=== PATIENT | female | born 1975 | race American Indian/Alaskan Native ===

== ENCOUNTER 2016-12-22 15:27 | Emergency (ER) | payer MEDICAID, OTHER ==
[2016-12-22 16:21] VITALS: BP 120/71
== END 2016-12-22 23:17 | disposition left against medical advice (07) ==
LOC: ED 15:27
DX: M79.671 Pain in right foot (principal); Z53.21 Procedure and treatment not carried out due to patient leaving prior to being seen by health care provider

== ENCOUNTER 2016-12-23 12:38 | Emergency (ER) | payer MEDICAID ==
[2016-12-23] MEDS ORDERED: MOTRIN PO ONE (20:06)
--- NOTE | 2016-12-23 20:16 | Emergency Department Report ---
ED Lower Extremity HPI - General Chief Complaint: Extremity Injury, Lower Stated Complaint: RT ANKLE SWELLING Time Seen by Provider: 12/23/16 19:45 Source: patient Mode of arrival: Ambulatory Limitations: No Limitations - History of Present Illness Initial Comments: 41-year-old female past medical history bipolar disorder presents with complaint of several days of right midfoot pain. Patient denies any direct trauma. States she stands up for long periods of time at work. States she walks several miles to work every day and has done so for several years. Patient denies any significant swelling of foot says she has some mild discomfort on direct palpation of midfoot. Patient denies any fevers chills or changes in skin otherwise. Patient states she has experienced this discomfort intermittently in the past after long periods of standing. Complaint: foot injury Onset/Timin -: days(s) Injury: Foot: Right Place: home, work Severity: mild Severity scale (0 -10): 5 Improves With: NSAID Worsens With: weight bearing, movement Associated Symptoms: ambulatory (patient is ambulatory without assistance) - Related Data Home Medications Medication Instructions Recorded Confirmed Last Taken carBAMazepine [Tegretol] 100 mg PO Q8H 04/19/13 04/19/13 Unknown Previous Rx's Medication Instructions Recorded Last Taken Type Ibuprofen [Motrin 800 MG tab] 800 mg PO Q8HR PRN #30 tablet 12/28/15 Unknown Rx Sulfamethoxazole/Trimethoprim 1 each PO BID #20 tablet 12/28/15 Unknown Rx [Bactrim DS TAB] Triamcinolone 0.1% [Kenalog 0.1% 1 applic TP TID #1 tube 12/28/15 Unknown Rx CREAM] metroNIDAZOLE 0.75% [Vandazole 1 applicator VG QHS #1 tube 12/28/15 Unknown Rx 0.75% VAGINAL] Naproxen [Naprosyn TAB] 500 mg PO BID PRN #20 tablet 12/23/16 Unknown Rx Allergies Allergy/AdvReac Type Severity Reaction Status Date / Time No Known Allergies Allergy Unverified 04/19/13 14:37 ED Review of Systems ROS: Stated complaint: RT ANKLE SWELLING Other details as noted in HPI Constitutional: denies: chills, fever Eyes: denies: eye pain, eye discharge, vision change ENT: denies: ear pain, throat pain Respiratory: denies: cough, shortness of breath, wheezing Cardiovascular: denies: chest pain, palpitations Endocrine: no symptoms reported Gastrointestinal: denies: abdominal pain, nausea, diarrhea Genitourinary: denies: urgency, dysuria, discharge Musculoskeletal: denies: back pain, joint swelling, arthralgia Skin: denies: rash, lesions Neurological: denies: headache, weakness, paresthesias Psychiatric: denies: anxiety, depression Hematological/Lymphatic: denies: easy bleeding, easy bruising ED Past Medical Hx - Past Medical History Previous Medical History?: Yes Hx Psychiatric Treatment: Yes (bipolar) - Surgical History Past Surgical History?: Yes Additional Surgical History: cyst removed from breasts- 1991 - Social History Smoking Status: Current Every Day Smoker Substance Use Type: Alcohol, Prescribed - Medications Home Medications: Home Medications Medication Instructions Recorded Confirmed Last Taken Type carBAMazepine [Tegretol] 100 mg PO Q8H 04/19/13 04/19/13 Unknown History Ibuprofen [Motrin 800 MG tab] 800 mg PO Q8HR PRN #30 tablet 12/28/15 Unknown Rx Sulfamethoxazole/Trimethoprim 1 each PO BID #20 tablet 12/28/15 Unknown Rx [Bactrim DS TAB] Triamcinolone 0.1% [Kenalog 0.1% 1 applic TP TID #1 tube 12/28/15 Unknown Rx CREAM] metroNIDAZOLE 0.75% [Vandazole 1 applicator VG QHS #1 tube 12/28/15 Unknown Rx 0.75% VAGINAL] Naproxen [Naprosyn TAB] 500 mg PO BID PRN #20 tablet 12/23/16 Unknown Rx ED Physical Exam - General Limitations: No Limitations General appearance: alert, in no apparent distress - Head Head exam: Present: atraumatic, normocephalic - Eye Eye exam: Present: normal appearance, PERRL, EOMI Pupils: Present: normal accommodation - ENT ENT exam: Present: mucous membranes moist - Neck Neck exam: Present: normal inspection - Respiratory Respiratory exam: Present: normal lung sounds bilaterally. Absent: respiratory distress - Cardiovascular Cardiovascular Exam: Present: regular rate, normal rhythm. Absent: systolic murmur, diastolic murmur, rubs, gallop - GI/Abdominal GI/Abdominal exam: Present: soft, normal bowel sounds - Extremities Exam Extremities exam: Present: normal inspection - Expanded Lower Extremity Exam Right Hip exam: Present: normal inspection Upper Leg exam: Present: normal inspection, full ROM Knee exam: Present: normal inspection, full ROM Lower Leg exam: Present: normal inspection, full ROM Ankle exam: Present: normal inspection, full ROM Foot/Toe exam: Present: normal inspection, full ROM, tenderness (there is reproducible tenderness on palpation of the midfoot region. There is no significant tenderness out of proportion. Patient is ambulatory without assistance. Full dorsalis pedis and posterior tibial pulses are intact palpation, distal sensation is intact) Neuro vascular tendon exam: Present: no vascular compromise Gait: Positive: observed and normal - Back Exam Back exam: Present: normal inspection - Neurological Exam Neurological exam: Present: alert, oriented X3 - Psychiatric Psychiatric exam: Present: normal affect, normal mood - Skin Skin exam: Present: warm, dry, intact, normal color. Absent: rash ED Course Vital Signs 12/23/16 12:56 Temperature 98.1 F Pulse Rate 65 Respiratory 20 Rate Blood Pressure 107/68 O2 Sat by Pulse 100 Oximetry ED Lower Extremity MDM - Medical Decision Making A/P: Right foot plantar fasciitis 1-based on clinical exam and history endorsed by the patient given prolonged standing periods at work and walking several miles on a daily basis patient more than likely has plantar fasciitis. Denies any direct trauma foot is neurovascularly intact distal pulses are strong to palpation and distal sensation is intact. Range of motion full and ankle intact there is no calf tenderness there is no significant swelling there is no peripheral edema. 2-naproxen when necessary, orthopedic shoe 3-follow-up with podiatry 4- patient ambulatory upon discharge Critical care attestation.: If time is entered above; I have spent that time in minutes in the direct care of this critically ill patient, excluding procedure time. ED Disposition Clinical Impression: Plantar fasciitis of right foot Disposition: DC- TO HOME OR SELFCARE Is pt being admited?: No Does the pt Need Aspirin: No Condition: Stable Instructions: Plantar Fasciitis (ED), RICE Therapy (ED) Prescriptions: Naproxen [Naprosyn TAB] 500 mg PO BID PRN #20 tablet PRN Reason: Pain , Severe (7-10) Referrals: ARUNA MORE DPM [Staff Physician] - 3-5 Days Forms: Work/School Release Form(ED) Time of Disposition: 20:17
[2016-12-23 20:21] VITALS: BP 116/75
== END 2016-12-23 20:39 | disposition home or self-care (01) ==
LOC: ED 12:38
DX: M72.2 Plantar fascial fibromatosis (principal); F31.9 Bipolar disorder, unspecified; F17.200 Nicotine dependence, unspecified, uncomplicated
CPT/HCPCS: 99283

== ENCOUNTER 2018-03-14 20:22 | Emergency (ER) | payer MEDICAID ==
[2018-03-14 20:28] VITALS: BP 126/74
--- NOTE | 2018-03-14 20:49 | Emergency Department Report ---
ED Female HPI - General Chief complaint: Urogenital-Female Stated complaint: PAIN IN BOTH BREAST Time Seen by Provider: 03/14/18 20:44 Source: patient Mode of arrival: Ambulatory Limitations: No Limitations - History of Present Illness -: Gradual Radiation: non-radiating Severity: mild Improves with: none Worsens with: none Are you Now?: No Associated Symptoms: denies other symptoms - Related Data Sexually active: Yes Home Medications Medication Instructions Recorded Confirmed Last Taken carBAMazepine [Tegretol] 100 mg PO Q8H 04/19/13 04/19/13 Unknown Previous Rx's Medication Instructions Recorded Last Taken Type Ibuprofen [Motrin 800 MG tab] 800 mg PO Q8HR PRN #30 tablet 12/28/15 Unknown Rx Sulfamethoxazole/Trimethoprim 1 each PO BID #20 tablet 12/28/15 Unknown Rx [Bactrim DS TAB] Triamcinolone 0.1% [Kenalog 0.1% 1 applic TP TID #1 tube 12/28/15 Unknown Rx CREAM] metroNIDAZOLE 0.75% [Vandazole 1 applicator VG QHS #1 tube 12/28/15 Unknown Rx 0.75% VAGINAL] Naproxen [Naprosyn TAB] 500 mg PO BID PRN #20 tablet 12/23/16 Unknown Rx Allergies Allergy/AdvReac Type Severity Reaction Status Date / Time lithium Allergy Seizure Verified 03/14/18 20:33 ED Review of Systems ROS: Stated complaint: PAIN IN BOTH BREAST Other details as noted in HPI Comment: All other systems reviewed and negative Constitutional: denies: chills Eyes: denies: eye pain ENT: denies: ear pain, throat pain Respiratory: denies: cough Cardiovascular: denies: chest pain, palpitations, dyspnea on exertion, orthopnea Endocrine: denies: excessive sweating, flushing, intolerance to cold, intolerance to heat Gastrointestinal: denies: nausea, vomiting Genitourinary: denies: urgency, dysuria Musculoskeletal: denies: back pain Skin: other (breast changes; last menst. 1 m ago. ). denies: rash, lesions, change in color, change in hair/nails, pruritus Neurological: denies: headache, weakness Psychiatric: denies: anxiety, depression Hematological/Lymphatic: denies: easy bleeding ED Past Medical Hx - Past Medical History Previous Medical History?: Yes Hx Psychiatric Treatment: Yes (bipolar) - Surgical History Past Surgical History?: Yes Additional Surgical History: cyst removed from breasts- 1991. Gallstones - Family History Family history: no significant - Social History Smoking Status: Current Every Day Smoker Substance Use Type: None - Medications Home Medications: Home Medications Medication Instructions Recorded Confirmed Last Taken Type carBAMazepine [Tegretol] 100 mg PO Q8H 04/19/13 04/19/13 Unknown History Ibuprofen [Motrin 800 MG tab] 800 mg PO Q8HR PRN #30 tablet 12/28/15 Unknown Rx Sulfamethoxazole/Trimethoprim 1 each PO BID #20 tablet 12/28/15 Unknown Rx [Bactrim DS TAB] Triamcinolone 0.1% [Kenalog 0.1% 1 applic TP TID #1 tube 12/28/15 Unknown Rx CREAM] metroNIDAZOLE 0.75% [Vandazole 1 applicator VG QHS #1 tube 12/28/15 Unknown Rx 0.75% VAGINAL] Naproxen [Naprosyn TAB] 500 mg PO BID PRN #20 tablet 12/23/16 Unknown Rx ED Physical Exam - General Limitations: No Limitations General appearance: alert - Head Head exam: Present: atraumatic - Eye Eye exam: Present: PERRL - ENT ENT exam: Present: mucous membranes moist - Neck Neck exam: Present: normal inspection - Respiratory Respiratory exam: Present: normal lung sounds bilaterally - Cardiovascular Cardiovascular Exam: Present: regular rate - GI/Abdominal GI/Abdominal exam: Present: soft - Rectal Rectal exam: Present: deferred - Extremities Exam Extremities exam: Present: normal inspection - Back Exam Back exam: Present: normal inspection - Neurological Exam Neurological exam: Present: alert, oriented X3 - Psychiatric Psychiatric exam: Present: normal affect, normal mood - Skin Skin exam: Present: warm, dry, intact, normal color, other (see note under course). Absent: rash ED Course Vital Signs 03/14/18 03/14/18 20:27 20:28 Temperature 97.8 F 97.8 F Pulse Rate 55 L 89 Respiratory 18 18 Rate Blood Pressure 126/74 126/74 O2 Sat by Pulse 100 100 Oximetry - Reevaluation(s) Reevaluation #1: 03/14/18 20:57 pt to er with changes in her breast tissue lmp 1 m ago she is going through menopause and worried about breast tissue she has not seen ob or had mamogram in several year polycystic breasts on exam. l breast has a subcutaneous lump that is mobile. there is no nipple retraction or discharge. no cellulitis or other s/s infection discussed at length with pt numerous options given to pt for follow up mamogram, ob and pcp. dc home w stable vs ED Medical Decision Making - Medical Decision Making menopausal woman w breast changes Critical care attestation.: If time is entered above; I have spent that time in minutes in the direct care of this critically ill patient, excluding procedure time. ED Disposition Clinical Impression: Menopausal disorder, Breast disease Disposition: DC-01 TO HOME OR SELFCARE Is pt being admited?: No Does the pt Need Aspirin: No Condition: Stable Instructions: Breast Self-exam (ED), Mammogram (ED), Menopause (ED) Additional Instructions: follow up for mamogram juan f you should also see obgyn referrals given below Referrals: ANDRA MCNALLY MD [Staff Physician] - 3-5 Days ALAN GILES MD [Staff Physician] - 3-5 Days Time of Disposition: 20:46
== END 2018-03-14 20:55 | disposition home or self-care (01) ==
LOC: ED 20:22
DX: N64.4 Mastodynia (principal); F17.200 Nicotine dependence, unspecified, uncomplicated; Z88.8 Allergy status to other drugs, medicaments and biological substances
CPT/HCPCS: 99282

== ENCOUNTER 2019-06-02 10:52 | Emergency (ER) | payer MEDICAID ==
--- NOTE | 2019-06-02 11:25 | Event Note ---
ED Screening Note Date of service: 06/02/19 Time: 11:22 ED Screening Note: This is a 43 y.o F. that presents to the ER with painful lesion to right 5th toe x 2-3 wks. Current smoker This initial assessment/diagnostic orders/clinical plan/treatment(s) is/are subject to change based on patients health status, clinical progression and re- assessment by fellow clinical providers in the ED. Further treatment and workup at subsequent clinical providers discretion. Patient/guardian urged not to elope from the ED as their condition may be serious if not clinically assessed and managed. Initial orders include:
--- NOTE | 2019-06-02 12:00 | Emergency Department Report ---
Chief Complaint: Extremity Injury, Lower Stated Complaint: RT FOOT PINKY BLACK/PAIN Time Seen by Provider: 06/02/19 11:21 - HPI History of Present Illness: 33-year-old female presents to ED complaining of right small toe pain for the past month. Patient states that she has a small hardening lesion on her small toe that Robes at shoes when she has shoes on. Patient states pain is aggravated with standing at work. He denies any injury trauma or falls to the foot or toe. Patient denies loss of sensation or inability to walk. - ROS Review of Systems: As noted in HPI - Exam Vital Signs: Vital Signs 06/02/19 11:22 Temperature 98.4 F Pulse Rate 102 H Respiratory 18 Rate Blood Pressure 104/64 O2 Sat by Pulse 97 Oximetry Physical Exam: GENERAL: Alert and oriented x3, no apparent distress, Normal Gait, atraumatic. EXTREMITIES/MUSCULOSKELETAL: No cyanosis, clubbing, rash, lesions or edema. Full ROM bilaterally. Pedal Pulses 2+ bilaterally. LE and UE 5+ strength bilaterally, small callous noted on right fifth toe. MSE screening note: Focused history and physical exam performed. Due to findings the following was ordered: ED Disposition for MSE Clinical Impression: Toe pain, right Disposition: Z-07 MED SCREENING EXAM-LEFT Is pt being admited?: No Does the pt Need Aspirin: No Condition: Stable Instructions: Arthralgia (ED) Additional Instructions: Take Motrin as needed for pain. Follow-up with primary care physician. Referrals: [facility] [Outside] - 3[facility] Forms: Work/School Release Form(ED) Time of Disposition: 11:59
[2019-06-02 13:28] VITALS: BP 106/70
== END 2019-06-02 13:26 | disposition left against medical advice (07) ==
LOC: ED 10:52
DX: M79.674 Pain in right toe(s) (principal); Z88.8 Allergy status to other drugs, medicaments and biological substances
CPT/HCPCS: 99282